=== PATIENT | female | born 1995 | race Caucasian/White ===

== ENCOUNTER 2017-01-10 03:19 | Emergency (ER) | payer MEDICAID ==
[~2017-01-10] VITALS: Ht 170.2 cm; Wt 109.9 kg
[2017-01-10 04:00] LABS: BASOPHILS % (AUTO) 0 % (0-2); EOSINOPHILS # (AUTO) 0.2 10^3uL; EOSINOPHILS % (AUTO) 2 % (0-4); LYMPHOCYTES # (AUTO) 1.9 X10^3; MEAN CORPUSCULAR HGB CONC 32.6 g/dL (31.0-37.0); MEAN PLATELET VOLUME 10.9 FL (6.0-9.5); MONOCYTES # (AUTO) 0.7 X10^3; MONOCYTES % (AUTO) 7 % (3-11); NEUTROPHILS # (AUTO) 8.3 X10^3; NEUTROPHILS % (AUTO) 74 % (51-67); PLATELET COUNT 292 10^3uL (150-450); WHITE BLOOD COUNT 11.09 10^3uL (4.0-11.0)
[2017-01-10 04:04] LABS: MEAN CORPUSCULAR HEMOGLOBIN 25.2 PG (26.0-34.0); MEAN CORPUSCULAR VOLUME 77 FL (80-100)
[2017-01-10 04:10] LABS: ALKALINE PHOSPHATASE 115 U/L (38-126); ANION GAP 15.3 MEQ/L (3-15); BUN/CREATININE RATIO 20 (10-20); CALCULATED IONIZED CALCIUM 3.9 mg/dL (3.8-4.6); TOTAL PROTEIN 7.1 g/dL (6.4-8.5)
[2017-01-10] MEDS ORDERED: KETOROLAC 30 MG/ML (TORADOL) 1 ML VIAL IV ONE (04:15)
[2017-01-10] MEDS ORDERED: LORazepam 2 MG/ML (ATIVAN) 1 ML VIAL IV ONE (04:15)
[2017-01-10 07:01] VITALS: BP 163/99
== END 2017-01-10 07:04 | disposition home or self-care (01) ==
LOC: ED 03:21
DX: R07.9 Chest pain, unspecified (principal)
CPT/HCPCS: 36415; 71010; 71275; 80053; 84484; 85025; 85379; 93005; 96374; 96375; 99283; J1885; J2060; J7030; Q9967; 93010; 96361; 99285

== ENCOUNTER 2017-01-10 20:36 | Emergency (ER) | payer MEDICAID ==
[~2017-01-10] VITALS: Ht 170.2 cm; Wt 109.4 kg
[2017-01-10] MEDS ORDERED: HYDROmorphone 1 MG/ML (DILAUDID) SYRINGE IV ONE (21:15)
[2017-01-10 21:42] LABS: BASOPHILS % (AUTO) 0 % (0-2); EOSINOPHILS # (AUTO) 0.1 10^3uL; EOSINOPHILS % (AUTO) 1 % (0-4); LYMPHOCYTES # (AUTO) 1.8 X10^3; MEAN CORPUSCULAR HGB CONC 32.1 g/dL (31.0-37.0); MEAN PLATELET VOLUME 11.1 FL (6.0-9.5); MONOCYTES # (AUTO) 0.8 X10^3; MONOCYTES % (AUTO) 8 % (3-11); NEUTROPHILS # (AUTO) 6.7 X10^3; NEUTROPHILS % (AUTO) 72 % (51-67); PLATELET COUNT 299 10^3uL (150-450)
[2017-01-10 21:44] LABS: MEAN CORPUSCULAR HEMOGLOBIN 24.8 PG (26.0-34.0); MEAN CORPUSCULAR VOLUME 77 FL (80-100)
[2017-01-10 21:51] LABS: ALKALINE PHOSPHATASE 119 U/L (38-126); ANION GAP 16.2 MEQ/L (3-15); BUN/CREATININE RATIO 20 (10-20); TOTAL PROTEIN 7.2 g/dL (6.4-8.5)
[2017-01-10] MEDS ORDERED: diphenhydrAMINE 50 MG/ML INJ (BENADRYL) IV ONE (22:15)
[2017-01-10] MEDS ORDERED: ONDANSETRON 2 MG/ML (Z0FRAN) 2 ML VIAL IV ONE (22:15)
[2017-01-10] MEDS ORDERED: HALOPERIDOL 5 MG/ML (HALDOL) 1 ML AMP IV ONE (22:15)
[2017-01-10] MEDS ORDERED: DEXAMETHASONE 4 MG/ML (DECADRON) 5ml VIAL IV ONE (22:15)
[2017-01-10 22:22] LABS: ERYTHROCYTE SEDIMENTATION RT* 33 mm/hr (0-21)
--- NOTE | 2017-01-10 23:46 | NUR ---
Patient is sleeping sitting up in bed with legs crossed on bed. Has not been able to sit up in bed with legs up on bed d/t pain, has been sitting on side of bed with legs dangling since she has been here until now.
--- NOTE | 2017-01-10 23:55 | NUR ---
resting with eyes closed
--- NOTE | 2017-01-11 00:20 | NUR ---
SITTING UP IN BED AWAKE SAYS THINKS PAIN IS BETTER
[2017-01-11] MEDS ORDERED: ED- HYDROcodone/ACETAMINOPHEN 5MG/325MG (NORCO) 6 TABLETS/BTL PO ONE (01:05)
[2017-01-11 04:37] VITALS: BP 113/73
== END 2017-01-11 01:28 | disposition home or self-care (01) ==
LOC: ED 20:38
DX: O90.89 Other complications of the puerperium, not elsewhere classified (principal); M54.89 Other dorsalgia
CPT/HCPCS: 36415; 71020; 80053; 84484; 85025; 85652; 86140; 96361; 96374; 96375; 99283; A9270; J1100; J1170; J1200; J1630; J2405; J7030